=== PATIENT | male | born 1940 | race American Indian/Alaskan Native ===

== ENCOUNTER 2017-07-22 10:51 | Outpatient (CLI) | payer MEDICARE ==
--- NOTE | 2017-07-22 11:13 | XRay Report ---
RIGHT ELBOW THREE VIEWS: 07/22/17 10:51:00 CLINICAL: Right elbow pain. FINDINGS: No fracture or dislocation. A large triceps insertion enthesophyte and focal soft tissue swelling at the olecranon. No joint effusion. The anterior posterior fat pads are nondisplaced. Normal radiohumeral joint. 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 IMPRESSION: Triceps enthesopathy and olecranon bursitis. Osteoarthritis of the ulnohumeral joint.
== END 2017-07-22 10:52 | disposition home or self-care (01) ==
LOC: SPVIMAG 10:51
PROVIDERS: ATTEND Orthopaedic Surgery Sports Medicine
DX: M19.021 Primary osteoarthritis, right elbow (principal); M70.21 Olecranon bursitis, right elbow; M77.8 Other enthesopathies, not elsewhere classified; Y93.89 Activity, other specified